=== PATIENT | male | born 1945 | race Caucasian/White ===

== ENCOUNTER 2018-10-06 15:24 | Emergency (ER) | payer OTHER ==
[~2018-10-06] VITALS: Ht 182.9 cm; Wt 104.3 kg
[~2018-10-06 15:24] MED LIST: ARMOUR THYROID30 M1 PO; CIPROFLOXACIN500 M1 PO; CO-ENZYME Q-1010 MG PO; DHEA50 MG PO; KEFLEX500 MG PO; NOHOMEMEDICATIONS; NORCO 5-325 TA1 EACH PO; OMEGA-3 + VITA200 ML PO; PREDNISONE 20 M20 MG PO; SIMVASTATIN40 MG PO; TAMSULOSIN HCL0.4 M1 PO; TESTOSTERONE; TROMBONEX-D CA1 EACH PO
[2018-10-06 15:57] LABS: ABSOLUTE BASOPHILS 0.1 thou/uL (0.0-0.2); ABSOLUTE EOSINOPHILS 0.4 thou/uL (0.0-0.7); ABSOLUTE LYMPHOCYTES 2.4 thou/uL (0.8-5.3); ABSOLUTE MONOCYTES 0.7 thou/uL (0.0-1.2); ABSOLUTE NEUTROPHILS 3.2 thou/uL (1.6-8.1); BASOPHILS 0.9 %; LYMPHOCYTES 35.8 %; MCH 30.3 pg (26.0-34.0); MCHC 33.3 g/dL (28.0-37.0); MONOCYTES 9.8 %; MPV 9.2 fl. (7.2-11.1); NUCLEATED RBCS 0 /100WBC; PLATELET COUNT* 168 thou/uL (150-400); POLYS 47.5 %; RBC 5.28 mil/uL (4.50-6.00); RDW-CV 13.6 % (10.5-14.5); WBC 6.6 thou/uL (4.0-11.0)
[2018-10-06 16:07] LABS: INR 1.1; PROTIME 10.9 Seconds (9.20-11.50)
[2018-10-06 16:17] LABS: ALBUMIN 3.5 g/dL (3.4-5.0); CALCIUM 9.5 mg/dL (8.5-10.1); CREATININE 1.2 mg/dL (0.6-1.3); POTASSIUM 3.7 mmol/L (3.5-5.1); TOTAL BILIRUBIN 0.5 mg/dL (<0.1-1.0); TOTAL PROTEIN 6.9 g/dL (6.4-8.2)
[2018-10-06 17:32] VITALS: BP 147/87
== END 2018-10-06 17:33 | disposition home or self-care (01) ==
LOC: M.ERS 15:24
PROVIDERS: Personal Emergency Response Attendant
DX: H53.8 Other visual disturbances (principal); E78.00 Pure hypercholesterolemia, unspecified; E03.9 Hypothyroidism, unspecified; Z86.73 Personal history of transient ischemic attack (TIA), and cerebral infarction without residual deficits